=== PATIENT | female | born 1975 | race Caucasian/White ===

== ENCOUNTER 2021-08-14 13:11 | Inpatient (IN) | payer OTHER ==
[2021-08-14 21:15] VITALS: BMI 25.0
[2021-08-14] MEDS ORDERED: ONDANSETRON *ODT* 4 MG TABLET SL PRN (22:20)
[2021-08-14] MEDS ORDERED: MAG HYDROX/AL HYDROX/SIMETH 30 ML UNIT-DOSE CUP PO PRN (22:20)
[2021-08-14] MEDS ORDERED: NICOTINE 10 MG CARTRIDGE (INHALER) IH PRN (22:20)
[2021-08-14] MEDS ORDERED: IBUPROFEN 600 MG TABLET (FP) PO PRN (22:20)
[2021-08-14] MEDS ORDERED: ACETAMINOPHEN 325 MG TABLET (FP) PO PRN ×2 (22:20)
[2021-08-14] MEDS ORDERED: BENZOCAINE/MENTHOL (CHLORASEPTIC ) LOZENGE MM PRN (22:20)
[2021-08-14] MEDS ORDERED: DICYCLOMINE HCL 10 MG CAPSULE PO PRN (22:20)
[2021-08-14] MEDS ORDERED: methaDONE HCL 10 MG TABLET (FOR DETOX USE ONLY) PO ONE (22:20)
[2021-08-14] MEDS ORDERED: IBUPROFEN 400 MG TABLET (FP) PO PRN (22:20)
[2021-08-14] MEDS ORDERED: LOPERAMIDE HCL 2 MG CAPSULE PO PRN (22:20)
[2021-08-14] MEDS ORDERED: MAGNESIUM HYDROX 2400MG/30ML ORAL SUSPENSION 30 ML CUP PO PRN (22:20)
[2021-08-14] MEDS ORDERED: BISMUTH SUBSALICYLATE 524 MG/30 ML PO PRN (22:20)
[2021-08-14] MEDS ORDERED: cloNIDine HCL 0.1 MG TABLET PO PRN (22:20)
[2021-08-14] MEDS ORDERED: MAGNESIUM CITRATE 300 ML BOTTLE PO PRN (22:20)
[2021-08-14] MEDS ORDERED: METHOCARBAMOL 500 MG TABLET PO PRN (22:20)
[2021-08-15 02:12] VITALS: BP 98/68; PULSE 110
[2021-08-15 07:53] VITALS: TEMP 97.2
[2021-08-15] MEDS ORDERED: NICOTINE 14 MG/24 HOURS TOPICAL PATCH TD SCH (10:00)
[2021-08-15] MEDS ORDERED: PRENATAL VITAMINS W/ FOLIC ACID TABLET (FP) PO SCH (10:00)
[2021-08-15] MEDS ORDERED: THIAMINE HCL 100 MG TABLET (FP) PO SCH (22:00)
[2021-08-15] MEDS ORDERED: MELATONIN 5 MG TABLETS PO SCH (22:00)
[2021-08-16] MEDS ORDERED: methaDONE HCL 10 MG TABLET (FOR DETOX USE ONLY) PO ONE (10:00)
[2021-08-18] MEDS ORDERED: methaDONE HCL 10 MG TABLET (FOR DETOX USE ONLY) PO ONE (10:00)
== END 2021-08-15 11:50 | disposition short-term general hospital (02) | DRG 773 ==
LOC: YASAS 13:11 → Y6N 08-15 01:28
PROVIDERS: ADMIT Allergy & Immunology; ATTEND Surgery
PROC: HZ2ZZZZ Detoxification Services for Substance Abuse Treatment (ICD-10-PCS; principal; 2021-08-15)
DX: F11.23 Opioid dependence with withdrawal (principal); F17.210 Nicotine dependence, cigarettes, uncomplicated; I10 Essential (primary) hypertension; J45.909 Unspecified asthma, uncomplicated; R00.0 Tachycardia, unspecified; R29.6 Repeated falls; M62.81 Muscle weakness (generalized); R26.2 Difficulty in walking, not elsewhere classified; S09.90XA Unspecified injury of head, initial encounter; W18.39XA Other fall on same level, initial encounter; Z91.81 History of falling; Y93.89 Activity, other specified; Y92.230 Patient room in hospital as the place of occurrence of the external cause; Z99.89 Dependence on other enabling machines and devices
CPT/HCPCS: 81025; C9803-CS; U0003; U0005

== ENCOUNTER 2021-08-14 15:31 | Emergency (ER) | payer OTHER ==
[2021-08-14 16:25] VITALS: BMI 21.6
[2021-08-14 18:26] VITALS: BP 108/72; PULSE 100; TEMP 97.7
== END 2021-08-14 18:27 | disposition home or self-care (01) ==
LOC: JER 15:31
DX: F11.23 Opioid dependence with withdrawal (principal)
CPT/HCPCS: 86900; 93005; 93010; 99283-25

== ENCOUNTER 2021-08-15 02:14 | Inpatient (IN) | payer OTHER ==
[2021-08-15 05:49] LABS: BASO % 0.1 % (0-2.0); EOS % 0.9 % (0-4.5); HEMATOCRIT 17.3 % (32.4-45.2); LYMPH % 14.5 % (8-40); MCH 24.8 pg (25.7-33.7); MCHC 31.6 g/dl (32.0-36.0); MEAN CELL VOLUME 78.5 fl (80-96); MEAN PLT VOLUME 8.4 fl (7.5-11.1); NEUT % 77.5 % (42.8-82.8); PLATELET COUNT 234 10^3/uL (134-434); RDW 23.1 % (11.6-15.6); WHITE BLOOD COUNT 13.2 K/mm3 (4.0-10.0)
[2021-08-15 06:08] LABS: HEMOGLOBIN 5.4 GM/dL (10.7-15.3)
[2021-08-15 06:11] LABS: CHLORIDE 107 mmol/L (98-107); SODIUM 141 mmol/L (136-145)
[2021-08-15 06:13] LABS: ALBUMIN 1.8 g/dl (3.4-5.0); ANION GAP 6 MMOL/L (8-16); CALCIUM 7.5 mg/dL (8.5-10.1); CO2 28 mmol/L (21-32); GLUCOSE,RANDOM 72 mg/dL (74-106)
[2021-08-15 06:14] LABS: BLOOD UREA NITROGEN 35.6 mg/dL (7-18)
[2021-08-15 06:16] LABS: SGPT/ALT 134 U/L (13-61)
[2021-08-15 06:17] LABS: CREATININE 1.5 mg/dL (0.55-1.3); SGOT/AST 56 U/L (15-37)
[2021-08-15 06:18] LABS: BILIRUBIN,TOTAL 0.4 mg/dL (0.2-1); TOT PROT 4.2 g/dl (6.4-8.2)
[2021-08-15 06:19] LABS: ALK PHOS 215 U/L (45-117)
[2021-08-15] MEDS ORDERED: PANTOPRAZOLE SODIUM 40 MG VIAL IVPUSH ONE (07:39)
[2021-08-15] MEDS ORDERED: FOLIC ACID INJECTION - 1 MG, THIAMINE HCL 100 MG, MULTIVIT INJECTION ADULT 10 ML in SOD... IVPB ONE (07:40)
[2021-08-15 07:43] LABS: MAGNESIUM 2.4 mg/dL (1.8-2.4)
[2021-08-15] MEDS ORDERED: DEXTROSE 10%-WATER - 1,000 ML IV SCH (07:45)
[2021-08-15 07:48] LABS: ANISOCYTOSIS 2+; MACROCYTOSIS 0; TARGET CELLS 1+
[2021-08-15] MEDS ORDERED: PANTOPRAZOLE SODIUM 40 MG VIAL ONE (08:16)
[2021-08-15 08:28] LABS: INR 1.49 (0.83-1.09); PROTHROMBIN TIME (PATIENT) 17.2 SEC (9.7-13.0)
[2021-08-15 08:31] LABS: ACTIVATED PTT 27.6 SECONDS (25.2-36.5)
[2021-08-15 11:00] LABS: PH,URINE 6.5 (5.0-8.0); URINE APPEARANCE CLEAR; URINE BILIRUBIN NEGATIVE (NEGATIVE); URINE COLOR YELLOW; URINE GLUCOSE (UA) TRACE (NEGATIVE); URINE KETONE NEGATIVE (NEGATIVE); URINE LEUK ESTERASE NEGATIVE (NEGATIVE); URINE NITRITE NEGATIVE (NEGATIVE); URINE PROTEIN NEGATIVE (NEGATIVE)
[2021-08-15] MEDS ORDERED: DEXTROSE 5%-NORMAL SALINE 1,000 ML IV SCH (12:30)
[2021-08-15 12:40] LABS: HIV INTERPRETATION NEGATIVE (NEGATIVE)
[2021-08-15 12:50] LABS: IRON SERUM 32 ug/dL (50-175); TOTAL IRON BINDING CAPACITY 199 ug/dL (250-450)
[2021-08-15] MEDS ORDERED: D5-1/2NS+20 MEQ KCL - 20 MEQ/1,000 ML INFUS.BAG IV SCH (13:15)
[2021-08-15] MEDS ORDERED: PHYTONADIONE 10 MG/1 ML AMP IVPB ONE (13:39)
[2021-08-15] MEDS ORDERED: PHYTONADIONE 10 MG/1 ML AMP ONE (13:48)
[2021-08-15 19:33] LABS: BASO % 0.2 % (0-2.0); EOS % 1.1 % (0-4.5); HEMATOCRIT 35.5 % (32.4-45.2); LYMPH % 20.7 % (8-40); MCHC 33.7 g/dl (32.0-36.0); MEAN CELL VOLUME 80.2 fl (80-96); MEAN PLT VOLUME 8.3 fl (7.5-11.1); MONO % 5.4 % (3.8-10.2); NEUT % 72.6 % (42.8-82.8); PLATELET COUNT 251 10^3/uL (134-434); RBC 4.42 M/mm3 (3.60-5.2); RDW 19.3 % (11.6-15.6); WHITE BLOOD COUNT 13.3 K/mm3 (4.0-10.0)
[2021-08-15] MEDS: PANTOPRAZOLE SODIUM 40 MG VIAL IVPUSH SCH (21:36)
[2021-08-15] MEDS ORDERED: ACETAMINOPHEN 1000 MG/100 ML BAG IVPB ONE (22:16)
[2021-08-16 08:26] LABS: BASO % 0.2 % (0-2.0); EOS % 1.6 % (0-4.5); HEMATOCRIT 28.3 % (32.4-45.2); HEMOGLOBIN 9.7 GM/dL (10.7-15.3); MCH 27.4 pg (25.7-33.7); MCHC 34.1 g/dl (32.0-36.0); MEAN CELL VOLUME 80.4 fl (80-96); MEAN PLT VOLUME 8.2 fl (7.5-11.1); NEUT % 65.2 % (42.8-82.8); PLATELET COUNT 196 10^3/uL (134-434); RBC 3.52 M/mm3 (3.60-5.2); WHITE BLOOD COUNT 11.2 K/mm3 (4.0-10.0)
[2021-08-16 08:36] LABS: ALBUMIN 1.6 g/dl (3.4-5.0); BLOOD UREA NITROGEN 17.2 mg/dL (7-18); CALCIUM 7.4 mg/dL (8.5-10.1); MAGNESIUM 2.1 mg/dL (1.8-2.4)
[2021-08-16 08:39] LABS: CREATININE 0.8 mg/dL (0.55-1.3)
[2021-08-16 08:41] LABS: BILIRUBIN,TOTAL 0.5 mg/dL (0.2-1)
[2021-08-16 09:29] LABS: ANISOCYTOSIS 2+; MACROCYTOSIS 0
[2021-08-16] MEDS: PANTOPRAZOLE SODIUM 40 MG VIAL IVPUSH SCH ×2 (09:41→21:33)
[2021-08-16] MEDS: MULTIVITAMINS (DAILY MVI) TABLET (FP) PO SCH (11:51)
[2021-08-16] MEDS: FOLIC ACID 1 MG TABLET (FP) PO SCH (11:51)
[2021-08-16] MEDS ORDERED: ACETAMINOPHEN 325 MG TABLET (FP) PO PRN (12:19)
[2021-08-16] MEDS ORDERED: IRON SUCROSE INJECTION 200 MG in SODIUM CHLORIDE 90 ML IVPB ONE (12:30)
[2021-08-16] MEDS: LIDOCAINE 5% TOPICAL PATCH TP SCH (14:09)
[2021-08-16] MEDS: ACETAMINOPHEN 1000 MG/100 ML BAG IVPB PRN (14:10)
[2021-08-16] MEDS: POLYETHYLENE GLYCOL (HEALTHYLAX) 3350 17 GM PACKET PO SCH ×2 (14:13→21:35)
[2021-08-16] MEDS: AMINO ACIDS/PROTEIN HYDROLYS 30 ML LIQUID.PKT PO SCH (17:43)
[2021-08-16] MEDS: THIAMINE HCL 100 MG TABLET (FP) PO SCH (21:32)
[2021-08-16] MEDS: LIDOCAINE PATCH REMOVAL MC SCH (21:36)
[2021-08-17] MEDS: POLYETHYLENE GLYCOL (HEALTHYLAX) 3350 17 GM PACKET PO SCH ×4 (06:07→21:45)
[2021-08-17 07:55] LABS: HEMATOCRIT 28.4 % (32.4-45.2); HEMOGLOBIN 9.7 GM/dL (10.7-15.3); MCH 27.5 pg (25.7-33.7); MCHC 34.1 g/dl (32.0-36.0); MEAN CELL VOLUME 80.6 fl (80-96); MEAN PLT VOLUME 8.4 fl (7.5-11.1); PLATELET COUNT 222 10^3/uL (134-434); RBC 3.52 M/mm3 (3.60-5.2); RDW 18.9 % (11.6-15.6)
[2021-08-17 08:26] LABS: INR 1.09 (0.83-1.09); PROTHROMBIN TIME (PATIENT) 12.6 SEC (9.7-13.0)
[2021-08-17 08:54] LABS: ALBUMIN 1.5 g/dl (3.4-5.0); BLOOD UREA NITROGEN 13.5 mg/dL (7-18); CALCIUM 7.3 mg/dL (8.5-10.1); MAGNESIUM 1.9 mg/dL (1.8-2.4)
[2021-08-17 08:57] LABS: CREATININE 0.6 mg/dL (0.55-1.3)
[2021-08-17 08:59] LABS: BILIRUBIN,TOTAL 0.4 mg/dL (0.2-1); TOT PROT 3.8 g/dl (6.4-8.2)
[2021-08-17] MEDS ORDERED: PEG 3350/NA SULF BICARB CL/KCL 4000 ML SOLN.RECON PO ONE (09:00)
[2021-08-17] MEDS ORDERED: ONDANSETRON 4 MG/2 ML VIAL IVPUSH PRN (09:15)
[2021-08-17 09:24] LABS: RETICULOCYTES 1.75 % (0.5-1.5)
[2021-08-17 09:53] LABS: ANISOCYTOSIS 0; HELMET CELLS 0; HOWELL-JOLLY BODIES 0; MACROCYTOSIS 0; OVALOCYTE 0; ROULEAU 0; SICKELED CELLS 0; TARGET CELLS 0; TEAR DROP CELLS 0; TOXIC GRANULATION 0
[2021-08-17] MEDS: FOLIC ACID 1 MG TABLET (FP) PO SCH (10:29)
[2021-08-17] MEDS: LORazepam 1 MG TABLET PO PRN (10:29)
[2021-08-17] MEDS: AMINO ACIDS/PROTEIN HYDROLYS 30 ML LIQUID.PKT PO SCH ×2 (10:29→18:20)
[2021-08-17] MEDS: MULTIVITAMINS (DAILY MVI) TABLET (FP) PO SCH (10:33)
[2021-08-17] MEDS: PANTOPRAZOLE SODIUM 40 MG VIAL IVPUSH SCH ×2 (10:33→21:30)
[2021-08-17] MEDS: ACETAMINOPHEN 1000 MG/100 ML BAG IVPB PRN (10:33)
[2021-08-17] MEDS: LIDOCAINE 5% TOPICAL PATCH TP SCH (10:33)
[2021-08-17] MEDS ORDERED: BISACODYL 5 MG TABLET.DR (FP) PO ONE (18:00)
[2021-08-17] MEDS ORDERED: MEROPENEM 1 GM VIAL (RESTRICTED TO ID) IVPB ONE (18:08)
[2021-08-17] MEDS ORDERED: DEXTROSE 5%-WATER 100 ML IVPB ONE (18:08)
[2021-08-17] MEDS: MEROPENEM 1 GM in DEXTROSE 5%-WATER 100 ML IVPB SCH (18:18)
[2021-08-17] MEDS: THIAMINE HCL 100 MG TABLET (FP) PO SCH (21:30)
[2021-08-17] MEDS: LIDOCAINE PATCH REMOVAL MC SCH (21:43)
[2021-08-18] MEDS ORDERED: MEROPENEM 1 GM VIAL (RESTRICTED TO ID) IVPB ONE ×3 (02:48→18:23)
[2021-08-18] MEDS ORDERED: DEXTROSE 5%-WATER 100 ML IVPB ONE ×3 (02:49→18:23)
[2021-08-18] MEDS: MEROPENEM 1 GM in DEXTROSE 5%-WATER 100 ML IVPB SCH ×3 (02:50→18:25)
[2021-08-18] MEDS: POLYETHYLENE GLYCOL (HEALTHYLAX) 3350 17 GM PACKET PO SCH ×3 (06:36→23:24)
[2021-08-18 06:50] LABS: HEMATOCRIT 28.5 % (32.4-45.2); HEMOGLOBIN 9.5 GM/dL (10.7-15.3); MCH 27.5 pg (25.7-33.7); MCHC 33.4 g/dl (32.0-36.0); MEAN CELL VOLUME 82.2 fl (80-96); MEAN PLT VOLUME 8.5 fl (7.5-11.1); PLATELET COUNT 285 10^3/uL (134-434); RBC 3.46 M/mm3 (3.60-5.2); RDW 19.2 % (11.6-15.6); WHITE BLOOD COUNT 9.4 K/mm3 (4.0-10.0)
[2021-08-18 07:13] LABS: CALCIUM 7.5 mg/dL (8.5-10.1)
[2021-08-18 07:14] LABS: ALBUMIN 1.6 g/dl (3.4-5.0); BLOOD UREA NITROGEN 16.2 mg/dL (7-18); MAGNESIUM 1.8 mg/dL (1.8-2.4)
[2021-08-18 07:17] LABS: CREATININE 0.7 mg/dL (0.55-1.3)
[2021-08-18 07:18] LABS: BILIRUBIN,TOTAL 0.3 mg/dL (0.2-1); TOT PROT 3.8 g/dl (6.4-8.2)
[2021-08-18 08:55] LABS: ANISOCYTOSIS 1+; MACROCYTOSIS 1+; OVALOCYTE 2+
[2021-08-18] MEDS ORDERED: LORazepam 0.5 MG TABLET PO PRN (11:00)
[2021-08-18] MEDS: AMINO ACIDS/PROTEIN HYDROLYS 30 ML LIQUID.PKT PO SCH ×2 (11:41→18:25)
[2021-08-18] MEDS: FOLIC ACID 1 MG TABLET (FP) PO SCH (11:42)
[2021-08-18] MEDS: MULTIVITAMINS (DAILY MVI) TABLET (FP) PO SCH (11:42)
[2021-08-18] MEDS: PANTOPRAZOLE SODIUM 40 MG VIAL IVPUSH SCH (11:42)
[2021-08-18] MEDS: LIDOCAINE 5% TOPICAL PATCH TP SCH (12:01)
[2021-08-18] MEDS: LORazepam 1 MG TABLET PO PRN ×2 (13:01→23:22)
[2021-08-18] MEDS ORDERED: MEROPENEM 1 GM in DEXTROSE 5%-WATER 100 ML IVPB SCH (18:00)
[2021-08-18 22:06] LABS: GLIADIN ANTIBODY IGA 2 units (0-19); GLIADIN ANTIBODY IGG 1 units (0-19); TRANSGLUTAMINASE IGG < 2 U/mL (0-5)
[2021-08-18] MEDS: LIDOCAINE PATCH REMOVAL MC SCH (23:23)
[2021-08-18] MEDS: THIAMINE HCL 100 MG TABLET (FP) PO SCH (23:23)
[2021-08-19] MEDS: PANTOPRAZOLE SODIUM 40 MG VIAL IVPUSH SCH ×3 (00:45→21:04)
[2021-08-19] MEDS: MEROPENEM 1 GM in DEXTROSE 5%-WATER 100 ML IVPB SCH ×3 (02:11→18:29)
[2021-08-19] MEDS: POLYETHYLENE GLYCOL (HEALTHYLAX) 3350 17 GM PACKET PO SCH ×3 (06:45→21:04)
[2021-08-19 07:25] LABS: BASO % 0.2 % (0-2.0); EOS % 2.2 % (0-4.5); HEMATOCRIT 28.7 % (32.4-45.2); HEMOGLOBIN 9.5 GM/dL (10.7-15.3); LYMPH % 26.1 % (8-40); MCH 27.7 pg (25.7-33.7); MCHC 33.2 g/dl (32.0-36.0); MEAN CELL VOLUME 83.4 fl (80-96); MEAN PLT VOLUME 8.8 fl (7.5-11.1); MONO % 11.3 % (3.8-10.2); NEUT % 60.2 % (42.8-82.8); PLATELET COUNT 281 10^3/uL (134-434); RBC 3.44 M/mm3 (3.60-5.2); RDW 19.4 % (11.6-15.6); WHITE BLOOD COUNT 8.6 K/mm3 (4.0-10.0)
[2021-08-19 07:46] LABS: ALBUMIN 1.6 g/dl (3.4-5.0); CALCIUM 7.7 mg/dL (8.5-10.1); MAGNESIUM 1.8 mg/dL (1.8-2.4)
[2021-08-19 07:47] LABS: BLOOD UREA NITROGEN 11.9 mg/dL (7-18)
[2021-08-19 07:49] LABS: CREATININE 0.7 mg/dL (0.55-1.3)
[2021-08-19 07:51] LABS: BILIRUBIN,TOTAL 0.5 mg/dL (0.2-1)
[2021-08-19] MEDS: AMINO ACIDS/PROTEIN HYDROLYS 30 ML LIQUID.PKT PO SCH ×3 (07:56→18:46)
[2021-08-19] MEDS ORDERED: MEROPENEM 1 GM VIAL (RESTRICTED TO ID) IVPB ONE ×2 (10:38→17:51)
[2021-08-19] MEDS ORDERED: DEXTROSE 5%-WATER 100 ML IVPB ONE ×2 (10:38→17:51)
[2021-08-19] MEDS: NADOLOL 20 MG TABLET (FP) PO SCH (10:49)
[2021-08-19] MEDS: LIDOCAINE 5% TOPICAL PATCH TP SCH (10:49)
[2021-08-19] MEDS: FOLIC ACID 1 MG TABLET (FP) PO SCH (10:49)
[2021-08-19] MEDS: MULTIVITAMINS (DAILY MVI) TABLET (FP) PO SCH (10:49)
[2021-08-19] MEDS: BACITRACIN 15 GM TUBE TOPICAL OINTMENT TP SCH ×2 (15:41→21:03)
[2021-08-19] MEDS: LIDOCAINE PATCH REMOVAL MC SCH (21:07)
[2021-08-19] MEDS: THIAMINE HCL 100 MG TABLET (FP) PO SCH (21:07)
[2021-08-19] MEDS: HEPARIN NA (PORCINE) 5,000 UNITS/ML 1ML VIAL SQ SCH (21:16)
[2021-08-19] MEDS: ACETAMINOPHEN 1000 MG/100 ML BAG IVPB PRN (22:27)
[2021-08-20] MEDS ORDERED: DEXTROSE 5%-WATER 100 ML IVPB ONE ×3 (01:22→16:52)
[2021-08-20] MEDS ORDERED: MEROPENEM 1 GM VIAL (RESTRICTED TO ID) IVPB ONE ×3 (01:22→16:51)
[2021-08-20] MEDS: MEROPENEM 1 GM in DEXTROSE 5%-WATER 100 ML IVPB SCH ×3 (01:29→17:02)
[2021-08-20] MEDS: POLYETHYLENE GLYCOL (HEALTHYLAX) 3350 17 GM PACKET PO SCH ×3 (06:02→21:25)
[2021-08-20] MEDS: AMINO ACIDS/PROTEIN HYDROLYS 30 ML LIQUID.PKT PO SCH ×3 (09:03→17:02)
[2021-08-20] MEDS: ACETAMINOPHEN 1000 MG/100 ML BAG IVPB PRN (10:09)
[2021-08-20] MEDS: LIDOCAINE 5% TOPICAL PATCH TP SCH (10:11)
[2021-08-20] MEDS: MULTIVITAMINS (DAILY MVI) TABLET (FP) PO SCH (10:13)
[2021-08-20] MEDS: NADOLOL 20 MG TABLET (FP) PO SCH (10:13)
[2021-08-20] MEDS: PANTOPRAZOLE SODIUM 40 MG VIAL IVPUSH SCH ×2 (10:13→21:25)
[2021-08-20] MEDS: FOLIC ACID 1 MG TABLET (FP) PO SCH (10:13)
[2021-08-20] MEDS: HEPARIN NA (PORCINE) 5,000 UNITS/ML 1ML VIAL SQ SCH ×2 (10:13→21:25)
[2021-08-20] MEDS: BACITRACIN 15 GM TUBE TOPICAL OINTMENT TP SCH ×2 (10:14→21:24)
[2021-08-20 12:12] LABS: HEMATOCRIT 29.5 % (32.4-45.2); HEMOGLOBIN 9.8 GM/dL (10.7-15.3); MCH 27.9 pg (25.7-33.7); MCHC 33.3 g/dl (32.0-36.0); MEAN CELL VOLUME 83.8 fl (80-96); MEAN PLT VOLUME 8.6 fl (7.5-11.1); PLATELET COUNT 416 10^3/uL (134-434); RBC 3.52 M/mm3 (3.60-5.2); RDW 19.9 % (11.6-15.6); WHITE BLOOD COUNT 7.8 K/mm3 (4.0-10.0)
[2021-08-20 12:18] LABS: CALCIUM 7.8 mg/dL (8.5-10.1)
[2021-08-20 12:19] LABS: ALBUMIN 1.6 g/dl (3.4-5.0); BLOOD UREA NITROGEN 9.3 mg/dL (7-18); MAGNESIUM 1.9 mg/dL (1.8-2.4)
[2021-08-20 12:22] LABS: CREATININE 0.5 mg/dL (0.55-1.3)
[2021-08-20 12:23] LABS: BILIRUBIN,TOTAL 0.4 mg/dL (0.2-1); TOT PROT 4.2 g/dl (6.4-8.2)
[2021-08-20 13:13] LABS: ANISOCYTOSIS 0; MACROCYTOSIS 0
[2021-08-20] MEDS: GABAPENTIN 300 MG CAPSULE PO SCH ×2 (17:01→21:27)
[2021-08-20] MEDS: THIAMINE HCL 100 MG TABLET (FP) PO SCH (21:27)
[2021-08-20] MEDS: LIDOCAINE PATCH REMOVAL MC SCH (21:33)
[2021-08-21] MEDS ORDERED: MEROPENEM 1 GM VIAL (RESTRICTED TO ID) IVPB ONE ×2 (01:09→10:14)
[2021-08-21] MEDS ORDERED: DEXTROSE 5%-WATER 100 ML IVPB ONE ×2 (01:10→10:14)
[2021-08-21] MEDS: MEROPENEM 1 GM in DEXTROSE 5%-WATER 100 ML IVPB SCH ×2 (01:16→11:23)
[2021-08-21] MEDS: GABAPENTIN 300 MG CAPSULE PO SCH ×2 (05:22→13:38)
[2021-08-21] MEDS: POLYETHYLENE GLYCOL (HEALTHYLAX) 3350 17 GM PACKET PO SCH ×2 (05:22→13:38)
[2021-08-21] MEDS: LIDOCAINE 5% TOPICAL PATCH TP SCH (11:27)
[2021-08-21] MEDS: MULTIVITAMINS (DAILY MVI) TABLET (FP) PO SCH (11:28)
[2021-08-21] MEDS: FOLIC ACID 1 MG TABLET (FP) PO SCH (11:28)
[2021-08-21] MEDS: PANTOPRAZOLE SODIUM 40 MG VIAL IVPUSH SCH (11:29)
[2021-08-21] MEDS: NADOLOL 20 MG TABLET (FP) PO SCH (11:29)
[2021-08-21] MEDS: AMINO ACIDS/PROTEIN HYDROLYS 30 ML LIQUID.PKT PO SCH (11:29)
[2021-08-21] MEDS: BACITRACIN 15 GM TUBE TOPICAL OINTMENT TP SCH (11:29)
[2021-08-21] MEDS: HEPARIN NA (PORCINE) 5,000 UNITS/ML 1ML VIAL SQ SCH (11:36)
[2021-08-21] MEDS: ACETAMINOPHEN 1000 MG/100 ML BAG IVPB PRN (12:45)
[2021-08-21 15:49] VITALS: BP 119/76; PULSE 73; TEMP 98.5
[2021-08-21 16:10] LABS: VITAMIN E (B-GAMMA) 0.7 mg/L (0.5-5.5)
== END 2021-08-21 17:55 | DRG 253 ==
LOC: JER 02:14 → JERBED 10:08 → J4W 15:04 → J4S 08-18 17:23
PROVIDERS: ADMIT Internal Medicine; ATTEND Nurse Practitioner Family
PROC: 30233N1 Transfusion of Nonautologous Red Blood Cells into Peripheral Vein, Percutaneous Approach (ICD-10-PCS; 2021-08-15)
PROC: 0DB68ZX Excision of Stomach, Via Natural or Artificial Opening Endoscopic, Diagnostic (ICD-10-PCS; 2021-08-18)
PROC: 0DB78ZX Excision of Stomach, Pylorus, Via Natural or Artificial Opening Endoscopic, Diagnostic (ICD-10-PCS; 2021-08-18)
PROC: 0DBA8ZX Excision of Jejunum, Via Natural or Artificial Opening Endoscopic, Diagnostic (ICD-10-PCS; principal; 2021-08-18 10:45)
PROC: 02HV33Z Insertion of Infusion Device into Superior Vena Cava, Percutaneous Approach (ICD-10-PCS; 2021-08-21)
PROC: B548ZZA Ultrasonography of Superior Vena Cava, Guidance (ICD-10-PCS; 2021-08-21)
DX: K62.5 Hemorrhage of anus and rectum (principal); D64.9 Anemia, unspecified; I85.00 Esophageal varices without bleeding; I10 Essential (primary) hypertension; J45.909 Unspecified asthma, uncomplicated; K31.9 Disease of stomach and duodenum, unspecified; F17.200 Nicotine dependence, unspecified, uncomplicated; R79.89 Other specified abnormal findings of blood chemistry; D50.9 Iron deficiency anemia, unspecified; N17.9 Acute kidney failure, unspecified; N39.0 Urinary tract infection, site not specified; F11.23 Opioid dependence with withdrawal; M54.10 Radiculopathy, site unspecified; K44.9 Diaphragmatic hernia without obstruction or gangrene; R55 Syncope and collapse
CPT/HCPCS: 36415; 36430; 36569; 70450-TC; 71045-TC-FY; 72125-TC; 72191-TC; 74175-TC; 77001-TC-FY; 80053; 81003; 82105; 82140; 82272; 82306; 82607; 82728; 82746; 82784; 82962; 83516; 83540; 83550; 83735; 84155; 84165; 84446; 84484; 84590; 84597; 84630; 84702; 85025; 85045; 85610; 85730; 86038; 86334; 86705; 86803; 86850; 86900; 86901; 86922; 87040; 87070; 87086; 87186; 87205; 87340; 87389; 87517; 88305-TC; 93005; 93010; 97116-GP; 99283-25; 99285-25; C1751; C9803-CS; J1644; J1756; P9058; Q9967; U0003; U0005

== ENCOUNTER 2021-08-22 17:30 | Inpatient (IN) | payer OTHER ==
[2021-08-22] MEDS ORDERED: SODIUM CHLORIDE 500 ML IV STA (18:59)
[2021-08-22] MEDS ORDERED: ACETAMINOPHEN 1000 MG/100 ML BAG IVPB ONE (18:59)
[2021-08-22] MEDS ORDERED: ACETAMINOPHEN INJECTION 100 ML IVPB ONE (19:09)
[2021-08-22] MEDS ORDERED: FAMOTIDINE 20 MG/50 ML IVPB 20 MG/50 ML MG IVPB ONE ×2 (19:42→20:06)
[2021-08-22 20:42] LABS: BASO % 0.3 % (0-2.0); HEMATOCRIT 29.6 % (32.4-45.2); HEMOGLOBIN 9.9 GM/dL (10.7-15.3); LYMPH % 9.3 % (8-40); MCH 27.6 pg (25.7-33.7); MCHC 33.4 g/dl (32.0-36.0); MEAN CELL VOLUME 82.7 fl (80-96); MEAN PLT VOLUME 8.4 fl (7.5-11.1); MONO % 7.4 % (3.8-10.2); PLATELET COUNT 643 10^3/uL (134-434); RBC 3.58 M/mm3 (3.60-5.2); WHITE BLOOD COUNT 18.6 K/mm3 (4.0-10.0)
[2021-08-22 20:51] LABS: INR 1.09 (0.83-1.09); PROTHROMBIN TIME (PATIENT) 12.6 SEC (9.7-13.0)
[2021-08-22 20:53] LABS: ACTIVATED PTT 34.7 SECONDS (25.2-36.5)
[2021-08-22 20:57] LABS: BLOOD UREA NITROGEN 8.6 mg/dL (7-18); CALCIUM 7.8 mg/dL (8.5-10.1)
[2021-08-22 21:01] LABS: CREATININE 0.5 mg/dL (0.55-1.3)
[2021-08-22 21:02] LABS: BILIRUBIN,TOTAL 0.5 mg/dL (0.2-1); TOT PROT 4.7 g/dl (6.4-8.2)
[2021-08-22] MEDS ORDERED: SODIUM CHLORIDE 1,000 ML IV STA (21:22)
[2021-08-22] MEDS ORDERED: LORazepam 2 MG/ML SDV VIAL IVPUSH ONE (21:53)
[2021-08-22] MEDS ORDERED: CEFEPIME HCL/D5W 2 GM/50 ML BAG IVPB ONE (23:26)
[2021-08-23] MEDS ORDERED: CEFEPIME 2 GM/100 ML BAG IVPB ONE (00:07)
[2021-08-23] MEDS ORDERED: PATIENT'S OWN MEDICATION (NON-FORMULARY) (Meropenem 1 GM Vial) IVPB SCH (02:00)
[2021-08-23] MEDS: ACETAMINOPHEN 1000 MG/100 ML BAG IVPB PRN ×2 (06:14→17:29)
[2021-08-23] MEDS: POLYETHYLENE GLYCOL (HEALTHYLAX) 3350 17 GM PACKET PO SCH ×4 (06:15→21:31)
[2021-08-23] MEDS: LACTATED RINGERS SOLUTION 1,000 ML IV SCH (06:16)
[2021-08-23] MEDS ORDERED: LORazepam 0.5 MG TABLET PO ONE (08:17)
[2021-08-23] MEDS ORDERED: MEROPENEM 1 GM VIAL (RESTRICTED TO ID) IVPB ONE ×2 (09:33→17:26)
[2021-08-23] MEDS ORDERED: DEXTROSE 5%-WATER 100 ML IVPB ONE ×2 (09:33→17:26)
[2021-08-23] MEDS: MEROPENEM 1 GM in DEXTROSE 5%-WATER 100 ML IVPB SCH ×2 (09:55→18:48)
[2021-08-23] MEDS: PANTOPRAZOLE SODIUM 40 MG VIAL IVPUSH SCH ×2 (09:55→21:15)
[2021-08-23] MEDS: MAG HYDROX/AL HYDROX/SIMETH 30 ML UNIT-DOSE CUP PO PRN (09:56)
[2021-08-23] MEDS: LIDOCAINE 5% TOPICAL PATCH TP SCH (10:05)
[2021-08-23] MEDS: NADOLOL 20 MG TABLET (FP) PO SCH (11:00)
[2021-08-23] MEDS ORDERED: LORazepam 1 MG TABLET PO PRN (12:13)
[2021-08-23] MEDS ORDERED: LORazepam 2 MG/ML SDV VIAL IVPUSH ONE (12:44)
[2021-08-23] MEDS: BISACODYL 10 MG SUPP.RECT PR ONE ×2 (13:04→13:09)
[2021-08-23] MEDS ORDERED: LORazepam 2 MG/ML SDV VIAL IVPUSH PRN (15:53)
[2021-08-23 19:24] VITALS: BMI 20.5
[2021-08-23] MEDS ORDERED: KETOROLAC TROMETHAMINE 15 MG/ML VIAL IVPUSH ONE (20:41)
[2021-08-23] MEDS: LIDOCAINE PATCH REMOVAL MC SCH (21:18)
[2021-08-23 21:58] LABS: URINE APPEARANCE CLEAR; URINE BILIRUBIN NEGATIVE (NEGATIVE); URINE COLOR YELLOW; URINE GLUCOSE (UA) NEGATIVE (NEGATIVE); URINE KETONE TRACE (NEGATIVE); URINE LEUK ESTERASE NEGATIVE (NEGATIVE); URINE NITRITE NEGATIVE (NEGATIVE); URINE PROTEIN NEGATIVE (NEGATIVE); URINE UROBILINOGEN 0.2 mg/dL (0.2-1.0)
[2021-08-24] MEDS ORDERED: DEXTROSE 5%-WATER 100 ML IVPB ONE ×3 (00:54→17:02)
[2021-08-24] MEDS ORDERED: MEROPENEM 1 GM VIAL (RESTRICTED TO ID) IVPB ONE ×3 (00:54→17:02)
[2021-08-24] MEDS: LACTATED RINGERS SOLUTION 1,000 ML IV SCH ×3 (00:56→22:50)
[2021-08-24] MEDS: MEROPENEM 1 GM in DEXTROSE 5%-WATER 100 ML IVPB SCH ×4 (01:01→17:21)
[2021-08-24] MEDS ORDERED: ACETAMINOPHEN 1000 MG/100 ML BAG IVPB ONE (01:11)
[2021-08-24] MEDS ORDERED: MEROPENEM 1 GM in DEXTROSE 5%-WATER 100 ML IVPB SCH (02:00)
[2021-08-24] MEDS: POLYETHYLENE GLYCOL (HEALTHYLAX) 3350 17 GM PACKET PO SCH (07:55)
[2021-08-24] MEDS ORDERED: ACETAMINOPHEN 1000 MG/100 ML BAG IVPB PRN (08:32)
[2021-08-24] MEDS: GABAPENTIN 300 MG CAPSULE PO SCH ×3 (08:47→22:50)
[2021-08-24] MEDS ORDERED: diazePAM 2 MG TABLET PO ONE (09:00)
[2021-08-24] MEDS: ASCORBIC ACID 500 MG TABLET (FP) PO SCH (09:15)
[2021-08-24] MEDS: MULTIVITAMINS (DAILY MVI) TABLET (FP) PO SCH (09:15)
[2021-08-24] MEDS: PANTOPRAZOLE SODIUM 40 MG VIAL IVPUSH SCH (09:15)
[2021-08-24] MEDS: NADOLOL 20 MG TABLET (FP) PO SCH (09:15)
[2021-08-24] MEDS: LIDOCAINE 5% TOPICAL PATCH TP SCH (09:15)
[2021-08-24 09:44] LABS: HEMATOCRIT 29.4 % (32.4-45.2); HEMOGLOBIN 10.2 GM/dL (10.7-15.3); MCH 28.3 pg (25.7-33.7); MCHC 34.6 g/dl (32.0-36.0); MEAN CELL VOLUME 81.8 fl (80-96); MEAN PLT VOLUME 8.4 fl (7.5-11.1); PLATELET COUNT 659 10^3/uL (134-434); RDW 20.3 % (11.6-15.6); WHITE BLOOD COUNT 24.9 K/mm3 (4.0-10.0)
[2021-08-24 10:35] LABS: ANISOCYTOSIS 1+; MACROCYTOSIS 1+; TARGET CELLS 1+
[2021-08-24 10:43] LABS: BLOOD UREA NITROGEN 5.2 mg/dL (7-18); CALCIUM 8.2 mg/dL (8.5-10.1)
[2021-08-24 10:44] LABS: MAGNESIUM 1.8 mg/dL (1.8-2.4)
[2021-08-24 10:46] LABS: BILIRUBIN,TOTAL 0.4 mg/dL (0.2-1); CREATININE 0.4 mg/dL (0.55-1.3); TOT PROT 5.1 g/dl (6.4-8.2)
[2021-08-24] MEDS ORDERED: diazePAM 2 MG TABLET PO PRN (11:05)
[2021-08-24] MEDS: KETOROLAC TROMETHAMINE 15 MG/ML VIAL IVPUSH PRN ×2 (11:33→17:05)
[2021-08-24] MEDS: diphenhydrAMINE HCL 25 MG CAPSULE (FP) PO PRN (17:41)
[2021-08-24] MEDS: diazePAM 2 MG TABLET PO PRN ×2 (18:49→22:54)
[2021-08-25] MEDS: LIDOCAINE PATCH REMOVAL MC SCH ×2 (00:11→23:25)
[2021-08-25] MEDS: KETOROLAC TROMETHAMINE 15 MG/ML VIAL IVPUSH PRN ×2 (01:43→10:35)
[2021-08-25] MEDS: LACTATED RINGERS SOLUTION 1,000 ML IV SCH ×2 (01:44→10:26)
[2021-08-25] MEDS ORDERED: MEROPENEM 1 GM VIAL (RESTRICTED TO ID) IVPB ONE ×3 (03:16→17:10)
[2021-08-25] MEDS ORDERED: DEXTROSE 5%-WATER 100 ML IVPB ONE ×3 (03:16→17:11)
[2021-08-25] MEDS: MEROPENEM 1 GM in DEXTROSE 5%-WATER 100 ML IVPB SCH ×3 (03:26→17:15)
[2021-08-25] MEDS: diazePAM 2 MG TABLET PO PRN ×2 (03:26→09:17)
[2021-08-25] MEDS: GABAPENTIN 300 MG CAPSULE PO SCH ×4 (06:52→23:24)
[2021-08-25 09:04] LABS: HEMATOCRIT 27.5 % (32.4-45.2); HEMOGLOBIN 9.2 GM/dL (10.7-15.3); MCH 28.1 pg (25.7-33.7); MCHC 33.4 g/dl (32.0-36.0); MEAN CELL VOLUME 84.1 fl (80-96); MEAN PLT VOLUME 8.5 fl (7.5-11.1); PLATELET COUNT 567 10^3/uL (134-434); RBC 3.27 M/mm3 (3.60-5.2); RDW 21.3 % (11.6-15.6); WHITE BLOOD COUNT 21.3 K/mm3 (4.0-10.0)
[2021-08-25] MEDS: MULTIVITAMINS (DAILY MVI) TABLET (FP) PO SCH (09:17)
[2021-08-25] MEDS: ASCORBIC ACID 500 MG TABLET (FP) PO SCH (09:17)
[2021-08-25] MEDS: LIDOCAINE 5% TOPICAL PATCH TP SCH (09:18)
[2021-08-25] MEDS: POLYETHYLENE GLYCOL (HEALTHYLAX) 3350 17 GM PACKET PO SCH (09:18)
[2021-08-25 09:38] LABS: CREATININE 0.5 mg/dL (0.55-1.3)
[2021-08-25] MEDS ORDERED: BUPRENORPHINE/NALOXONE 2 MG/0.5 MG FILM PACKET SL ONE (09:39)
[2021-08-25 09:40] LABS: ALBUMIN 1.7 g/dl (3.4-5.0); BILIRUBIN,TOTAL 0.5 mg/dL (0.2-1); BLOOD UREA NITROGEN 3.9 mg/dL (7-18); TOT PROT 4.6 g/dl (6.4-8.2)
[2021-08-25 09:44] LABS: ANISOCYTOSIS 1+; MACROCYTOSIS 1+
[2021-08-25 09:49] LABS: CALCIUM 7.8 mg/dL (8.5-10.1); MAGNESIUM 1.7 mg/dL (1.8-2.4)
[2021-08-25] MEDS ORDERED: POTASSIUM CHLORIDE TABS 20 MEQ TABLET.ER (FP) PO ONE (09:52)
[2021-08-25] MEDS ORDERED: ONDANSETRON 4 MG/2 ML VIAL IM PRN (12:34)
[2021-08-25] MEDS: ONDANSETRON 4 MG/2 ML VIAL IVPB PRN (13:31)
[2021-08-25] MEDS ORDERED: BUPRENORPHINE/NALOXONE 8 MG/2 MG FILM PACKET SL STA (15:03)
[2021-08-25] MEDS ORDERED: MAGNESIUM SULF 50% (8.12 MEQ/2 ML-1 GM VIAL) IVPB ONE (16:03)
[2021-08-25] MEDS ORDERED: BUPRENORPHINE/NALOXONE 2 MG/0.5 MG FILM PACKET SL SCH (22:00)
[2021-08-26] MEDS ORDERED: MEROPENEM 1 GM VIAL (RESTRICTED TO ID) IVPB ONE ×3 (01:06→17:13)
[2021-08-26] MEDS ORDERED: DEXTROSE 5%-WATER 100 ML IVPB ONE ×3 (01:06→17:13)
[2021-08-26] MEDS: KETOROLAC TROMETHAMINE 15 MG/ML VIAL IVPUSH PRN ×2 (01:34→06:38)
[2021-08-26] MEDS: LACTATED RINGERS SOLUTION 1,000 ML IV SCH (01:34)
[2021-08-26] MEDS: MEROPENEM 1 GM in DEXTROSE 5%-WATER 100 ML IVPB SCH ×3 (01:34→17:14)
[2021-08-26] MEDS ORDERED: ACETAMINOPHEN 325 MG TABLET (FP) PO ONE (04:43)
[2021-08-26] MEDS: GABAPENTIN 300 MG CAPSULE PO SCH ×4 (05:36→22:52)
[2021-08-26] MEDS: diazePAM 2 MG TABLET PO PRN (05:39)
[2021-08-26 08:54] LABS: BASO % 0.6 % (0-2.0); EOS % 1.7 % (0-4.5); HEMATOCRIT 27.2 % (32.4-45.2); LYMPH % 9.1 % (8-40); MCH 27.8 pg (25.7-33.7); MEAN CELL VOLUME 84.2 fl (80-96); MEAN PLT VOLUME 8.1 fl (7.5-11.1); MONO % 5.6 % (3.8-10.2); PLATELET COUNT 567 10^3/uL (134-434); RBC 3.23 M/mm3 (3.60-5.2); RDW 20.4 % (11.6-15.6); WHITE BLOOD COUNT 15.8 K/mm3 (4.0-10.0)
[2021-08-26] MEDS: BUPRENORPHINE/NALOXONE 8 MG/2 MG FILM PACKET SL SCH (09:21)
[2021-08-26] MEDS: ASCORBIC ACID 500 MG TABLET (FP) PO SCH (09:22)
[2021-08-26] MEDS: LIDOCAINE 5% TOPICAL PATCH TP SCH (09:22)
[2021-08-26] MEDS: MULTIVITAMINS (DAILY MVI) TABLET (FP) PO SCH (09:22)
[2021-08-26] MEDS: POLYETHYLENE GLYCOL (HEALTHYLAX) 3350 17 GM PACKET PO SCH (09:22)
[2021-08-26] MEDS: diphenhydrAMINE HCL 25 MG CAPSULE (FP) PO PRN (09:22)
[2021-08-26 10:18] LABS: BLOOD UREA NITROGEN 4.5 mg/dL (7-18)
[2021-08-26 10:19] LABS: ALBUMIN 1.8 g/dl (3.4-5.0)
[2021-08-26 10:20] LABS: CALCIUM 8.1 mg/dL (8.5-10.1)
[2021-08-26 10:22] LABS: CREATININE 0.5 mg/dL (0.55-1.3)
[2021-08-26 10:23] LABS: TOT PROT 4.7 g/dl (6.4-8.2)
[2021-08-26 10:28] LABS: BILIRUBIN,TOTAL 1.3 mg/dL (0.2-1)
[2021-08-26] MEDS ORDERED: HYDROmorphone HCl 2 MG/ML VIAL IVPB ONE (12:44)
[2021-08-26] MEDS: LIDOCAINE PATCH REMOVAL MC SCH (22:50)
[2021-08-27] MEDS ORDERED: DEXTROSE 5%-WATER 100 ML IVPB ONE ×3 (01:24→17:07)
[2021-08-27] MEDS ORDERED: MEROPENEM 1 GM VIAL (RESTRICTED TO ID) IVPB ONE ×3 (01:24→17:06)
[2021-08-27] MEDS: MEROPENEM 1 GM in DEXTROSE 5%-WATER 100 ML IVPB SCH ×3 (02:08→17:09)
[2021-08-27] MEDS: LACTATED RINGERS SOLUTION 1,000 ML IV SCH ×2 (02:08→09:15)
[2021-08-27] MEDS: GABAPENTIN 300 MG CAPSULE PO SCH ×3 (06:11→21:32)
[2021-08-27] MEDS: MAG HYDROX/AL HYDROX/SIMETH 30 ML UNIT-DOSE CUP PO PRN ×2 (06:17→12:18)
[2021-08-27] MEDS: KETOROLAC TROMETHAMINE 15 MG/ML VIAL IVPUSH PRN ×3 (06:19→21:26)
[2021-08-27] MEDS: LIDOCAINE 5% TOPICAL PATCH TP SCH (09:15)
[2021-08-27] MEDS: POLYETHYLENE GLYCOL (HEALTHYLAX) 3350 17 GM PACKET PO SCH (09:16)
[2021-08-27] MEDS: MULTIVITAMINS (DAILY MVI) TABLET (FP) PO SCH (09:16)
[2021-08-27] MEDS: ASCORBIC ACID 500 MG TABLET (FP) PO SCH (09:16)
[2021-08-27] MEDS: BUPRENORPHINE/NALOXONE 8 MG/2 MG FILM PACKET SL SCH (09:16)
[2021-08-27 11:45] LABS: BASO % 2.1 % (0-2.0); EOS % 2.8 % (0-4.5); HEMOGLOBIN 9.2 GM/dL (10.7-15.3); LYMPH % 25.6 % (8-40); MCHC 32.9 g/dl (32.0-36.0); MEAN PLT VOLUME 7.9 fl (7.5-11.1); MONO % 10.7 % (3.8-10.2); NEUT % 58.8 % (42.8-82.8); PLATELET COUNT 551 10^3/uL (134-434); RBC 3.29 M/mm3 (3.60-5.2); RDW 21.4 % (11.6-15.6); WHITE BLOOD COUNT 6.7 K/mm3 (4.0-10.0)
[2021-08-27 12:18] LABS: ALBUMIN 1.6 g/dl (3.4-5.0)
[2021-08-27 12:21] LABS: CREATININE 0.5 mg/dL (0.55-1.3)
[2021-08-27 12:23] LABS: BILIRUBIN,TOTAL 0.6 mg/dL (0.2-1); TOT PROT 4.3 g/dl (6.4-8.2)
[2021-08-27 12:25] LABS: CALCIUM 7.9 mg/dL (8.5-10.1)
[2021-08-27] MEDS: ONDANSETRON 4 MG/2 ML VIAL IVPB PRN (18:42)
[2021-08-27] MEDS: LIDOCAINE PATCH REMOVAL MC SCH (21:32)
[2021-08-28] MEDS ORDERED: DEXTROSE 5%-WATER 100 ML IVPB ONE ×3 (00:46→17:05)
[2021-08-28] MEDS ORDERED: MEROPENEM 1 GM VIAL (RESTRICTED TO ID) IVPB ONE ×3 (00:46→17:05)
[2021-08-28] MEDS: MEROPENEM 1 GM in DEXTROSE 5%-WATER 100 ML IVPB SCH ×3 (01:08→17:08)
[2021-08-28] MEDS: diazePAM 2 MG TABLET PO PRN (01:08)
[2021-08-28] MEDS: ONDANSETRON 4 MG/2 ML VIAL IVPB PRN ×2 (01:57→08:06)
[2021-08-28] MEDS: KETOROLAC TROMETHAMINE 15 MG/ML VIAL IVPUSH PRN (03:37)
[2021-08-28] MEDS: GABAPENTIN 300 MG CAPSULE PO SCH ×3 (06:18→22:21)
[2021-08-28] MEDS: BUPRENORPHINE/NALOXONE 8 MG/2 MG FILM PACKET SL SCH (09:08)
[2021-08-28] MEDS: LIDOCAINE 5% TOPICAL PATCH TP SCH (09:08)
[2021-08-28] MEDS: ASCORBIC ACID 500 MG TABLET (FP) PO SCH (09:09)
[2021-08-28] MEDS: POLYETHYLENE GLYCOL (HEALTHYLAX) 3350 17 GM PACKET PO SCH (09:09)
[2021-08-28] MEDS: MULTIVITAMINS (DAILY MVI) TABLET (FP) PO SCH (09:09)
[2021-08-28] MEDS ORDERED: LORazepam 2 MG/ML SDV VIAL IVPUSH ONE (09:30)
[2021-08-28] MEDS ORDERED: KETOROLAC TROMETHAMINE 30 MG/1 ML VIAL IVPUSH ONE (09:30)
[2021-08-28] MEDS: LIDOCAINE PATCH REMOVAL MC SCH (22:21)
[2021-08-29] MEDS ORDERED: MEROPENEM 1 GM VIAL (RESTRICTED TO ID) IVPB ONE ×3 (00:46→14:36)
[2021-08-29] MEDS ORDERED: DEXTROSE 5%-WATER 100 ML IVPB ONE ×3 (00:46→14:36)
[2021-08-29] MEDS: MEROPENEM 1 GM in DEXTROSE 5%-WATER 100 ML IVPB SCH ×3 (01:17→17:05)
[2021-08-29] MEDS: GABAPENTIN 300 MG CAPSULE PO SCH ×3 (05:35→21:11)
[2021-08-29] MEDS: LIDOCAINE 5% TOPICAL PATCH TP SCH (10:18)
[2021-08-29] MEDS: POLYETHYLENE GLYCOL (HEALTHYLAX) 3350 17 GM PACKET PO SCH (10:18)
[2021-08-29] MEDS: MULTIVITAMINS (DAILY MVI) TABLET (FP) PO SCH (10:18)
[2021-08-29] MEDS: ASCORBIC ACID 500 MG TABLET (FP) PO SCH (10:18)
[2021-08-29] MEDS: BUPRENORPHINE/NALOXONE 8 MG/2 MG FILM PACKET SL SCH (10:18)
[2021-08-29] MEDS: ONDANSETRON 4 MG/2 ML VIAL IVPB PRN ×2 (10:22→21:06)
[2021-08-29] MEDS: KETOROLAC TROMETHAMINE 15 MG/ML VIAL IVPUSH PRN ×2 (10:54→17:07)
[2021-08-29] MEDS: LIDOCAINE PATCH REMOVAL MC SCH (21:07)
[2021-08-30] MEDS ORDERED: MEROPENEM 1 GM VIAL (RESTRICTED TO ID) IVPB ONE ×3 (00:10→18:29)
[2021-08-30] MEDS ORDERED: DEXTROSE 5%-WATER 100 ML IVPB ONE ×3 (00:10→18:29)
[2021-08-30] MEDS: KETOROLAC TROMETHAMINE 15 MG/ML VIAL IVPUSH PRN ×2 (01:00→11:05)
[2021-08-30] MEDS: MEROPENEM 1 GM in DEXTROSE 5%-WATER 100 ML IVPB SCH ×3 (01:02→18:49)
[2021-08-30] MEDS: GABAPENTIN 300 MG CAPSULE PO SCH ×3 (05:15→21:48)
[2021-08-30] MEDS: BUPRENORPHINE/NALOXONE 8 MG/2 MG FILM PACKET SL SCH (10:00)
[2021-08-30] MEDS: LIDOCAINE 5% TOPICAL PATCH TP SCH (10:01)
[2021-08-30] MEDS: POLYETHYLENE GLYCOL (HEALTHYLAX) 3350 17 GM PACKET PO SCH (10:01)
[2021-08-30] MEDS: ASCORBIC ACID 500 MG TABLET (FP) PO SCH (10:02)
[2021-08-30] MEDS: MULTIVITAMINS (DAILY MVI) TABLET (FP) PO SCH (10:02)
[2021-08-30] MEDS: ONDANSETRON 4 MG/2 ML VIAL IVPB PRN ×2 (11:04→22:23)
[2021-08-30] MEDS: KETOROLAC TROMETHAMINE 10 MG TABLET PO PRN (17:58)
[2021-08-30] MEDS: LIDOCAINE PATCH REMOVAL MC SCH (21:49)
[2021-08-31] MEDS ORDERED: DEXTROSE 5%-WATER 100 ML IVPB ONE ×3 (00:50→16:29)
[2021-08-31] MEDS ORDERED: MEROPENEM 1 GM VIAL (RESTRICTED TO ID) IVPB ONE ×3 (00:50→16:28)
[2021-08-31] MEDS: MEROPENEM 1 GM in DEXTROSE 5%-WATER 100 ML IVPB SCH ×3 (01:29→17:11)
[2021-08-31] MEDS: KETOROLAC TROMETHAMINE 10 MG TABLET PO PRN (04:53)
[2021-08-31] MEDS: GABAPENTIN 300 MG CAPSULE PO SCH ×3 (05:00→13:47)
[2021-08-31] MEDS ORDERED: ACETAMINOPHEN 325 MG TABLET (FP) PO ONE (06:47)
[2021-08-31 08:06] VITALS: BP 161/90; PULSE 59; TEMP 98.5
[2021-08-31] MEDS: BUPRENORPHINE/NALOXONE 8 MG/2 MG FILM PACKET SL SCH (10:00)
[2021-08-31] MEDS: POLYETHYLENE GLYCOL (HEALTHYLAX) 3350 17 GM PACKET PO SCH (10:00)
[2021-08-31] MEDS: LIDOCAINE 5% TOPICAL PATCH TP SCH (10:00)
[2021-08-31] MEDS: MULTIVITAMINS (DAILY MVI) TABLET (FP) PO SCH (10:01)
[2021-08-31] MEDS: ASCORBIC ACID 500 MG TABLET (FP) PO SCH (10:01)
[2021-08-31 12:38] LABS: HEMATOCRIT 28.4 % (32.4-45.2); HEMOGLOBIN 9.3 GM/dL (10.7-15.3); MCH 28.2 pg (25.7-33.7); MCHC 32.8 g/dl (32.0-36.0); MEAN CELL VOLUME 85.9 fl (80-96); MEAN PLT VOLUME 7.8 fl (7.5-11.1); PLATELET COUNT 413 10^3/uL (134-434); RDW 22.3 % (11.6-15.6); WHITE BLOOD COUNT 6.5 K/mm3 (4.0-10.0)
[2021-08-31 12:56] LABS: CALCIUM 8.1 mg/dL (8.5-10.1)
[2021-08-31 12:57] LABS: BLOOD UREA NITROGEN 13.3 mg/dL (7-18)
[2021-08-31 13:00] LABS: CREATININE 0.4 mg/dL (0.55-1.3)
[2021-08-31] MEDS: ONDANSETRON 4 MG/2 ML VIAL IVPB PRN (13:42)
== END 2021-08-31 18:00 | disposition home or self-care (01) | DRG 463 ==
LOC: JER 17:30 → JERBED 23:28 → J7W 08-23 04:06
PROVIDERS: ADMIT Hospitalist; ATTEND Nurse Practitioner Family
PROC: HZ2ZZZZ Detoxification Services for Substance Abuse Treatment (ICD-10-PCS; principal; 2021-08-22)
DX: N39.0 Urinary tract infection, site not specified (principal); K59.03 Drug induced constipation; N17.9 Acute kidney failure, unspecified; I85.00 Esophageal varices without bleeding; F11.23 Opioid dependence with withdrawal; K31.9 Disease of stomach and duodenum, unspecified; I10 Essential (primary) hypertension; J45.909 Unspecified asthma, uncomplicated; R91.8 Other nonspecific abnormal finding of lung field; R45.1 Restlessness and agitation; T40.2X5A Adverse effect of other opioids, initial encounter; R74.01 Elevation of levels of liver transaminase levels; D72.829 Elevated white blood cell count, unspecified; Z16.12 Extended spectrum beta lactamase (ESBL) resistance; B96.1 Klebsiella pneumoniae [K. pneumoniae] as the cause of diseases classified elsewhere
CPT/HCPCS: 0241U-QW; 36415; 71045-TC-FY; 74176-TC; 80048; 80053; 81003; 83605; 83690; 83735; 84703; 85025; 85027; 85610; 85730; 86140; 87899; 93005; 93010; 97116-GP; 97161-GP; 99285-25; C9803-CS; U0003; U0005